=== PATIENT | female | born 1930 | race Caucasian/White ===

== ENCOUNTER 2017-07-05 16:45 | Inpatient (IN) ==
[2017-07-05 19:14] LABS: Bilirubin,Urine Negative (Negative); Blood,Urine Trace (Negative); Color,Urine Yellow (Yellow); Glucose,Urine (UA) Normal (Normal); Ketones,Urine Negative (Negative); Leukocyte Esterase,Urine Small (Negative); Nitrite,Urine Negative (Negative); Protein,Urine 30 mg/dL (Neg-Trace); Specific Gravity,Urine 1.025 (1.010-1.025); Urobilinogen,Urine Normal (Normal)
[2017-07-05 19:17] LABS: Basophils # 0.1 K/mcL (0.0-0.2); Basophils % 0.5 %; Eosinophils # 0.1 K/mcL (0.0-0.6); Eosinophils % 1.1 %; Hematocrit 40.1 % (35.3-44.9); Hemoglobin 13.1 g/dL (11.5-15.4); Immature Granulocytes % 0.6 % (0-4); Lymphocytes # 1.4 K/mcL (0.6-4.6); Lymphocytes % 14.6 %; Mean Corpuscular HGB Conc 32.7 g/dL (31.6-35.5); Mean Corpuscular Volume 88.9 fL (83.0-100.0); Mean Platelet Volume 10.3 fL (9.4-12.4); Monocytes # 0.5 K/mcL (0.0-1.3); Monocytes % 5.6 %; Neutrophils # 7.4 K/mcL (1.6-8.9); Platelet Count 296 K/mcL (140-400); Red Blood Count 4.51 M/mcL (3.82-4.97); Red Cell Distribution Width 13.2 % (11.5-14.5); Segmented Neutrophils % 77.6 %
[2017-07-05 19:24] LABS: Hyaline Casts,Urine None Seen per lpf (None-Few); RBC,Urine 0-3 per hpf (0-3); Squamous Epithelial Cell,Urine Many per lpf (None-Few); WBC,Urine 15-30 per hpf (0-3)
[2017-07-05 19:25] LABS: Clarity,Urine Hazy (Clear)
[2017-07-05 19:28] LABS: Alanine Aminotransferase 13 Units/L (7-52); Albumin 3.9 g/dL (3.5-5.7); Albumin/Globulin Ratio 1.1 (1.1-2.2); Alkaline Phosphatase 126 Units/L (34-104); Amylase 32 Units/L (29-103); Aspartate Amino Transferase 13 Units/L (13-39); BUN/Creatinine Ratio 38 (6-26); Bilirubin,Indirect 0.3 mg/dL (0.0-1.2); Bilirubin,Total 0.3 mg/dL (0.3-1.0); Blood Urea Nitrogen 33 mg/dL (8-23); Calcium 9.3 mg/dL (8.6-10.3); Carbon Dioxide 22 mEq/L (23-29); Chloride 103 mEq/L (98-107); Globulin 3.5 g/dL (2.4-3.5); Glucose 176 mg/dL (70-105); Lipase 34 Units/L (11-82); Osmolality,Calculated 288 (280-300); Potassium 4.4 mEq/L (3.5-5.1); Sodium 133 mEq/L (136-145); Total Protein 7.4 g/dL (6.4-8.9); eGFR For African Americans > 60 (> 60); eGFR For Non-African Americans > 60 (> 60)
[2017-07-05 19:37] LABS: Bacteria,Urine Moderate per hpf (None-Few)
--- NOTE | 2017-07-05 19:40 | Emergency Department Note ---
Disposition Clinical Impression: Acute exacerbation of chronic obstructive pulmonary disease (COPD), Pain with urination Disposition: Admitted As Inpatient Condition: Good Time of Disposition: 21:04 General Adult HPI - General Chief complaint: ED Abdominal Pain Stated complaint: UTI Time Seen by Provider: 07/05/17 17:40 Source: patient Limitations: no limitations Nursing Notes Reviewed: Yes Vital Signs Reviewed: Yes - History of Present Illness HPI Narrative: Patient is an 86-year-old female that just the emergency department for urinary symptoms. She states that she was diagnosed the urinary tract infection of approximately 10 days ago. States that she has been on 2 different antibiotics including Cipro and nitrofurantoin. Family states that she has had some changes in mentation including not being able sleep all night and infantile behavior. Denies any blood in her urine. States that she has been having some generalized weakness but denies any fever or chills. Pain Scale: 7 - Related Data Home Medications Medication Instructions Recorded Confirmed Acetaminophen w/Cod 300-30 mg 1 each PO Q8HR 06/26/17 06/26/17 [Tylenol w/Codeine #3] Albuterol Sulfate [Ventolin Hfa] 18 gm IH Q4HR 06/26/17 06/26/17 Cyclobenzaprine [Flexeril] 10 mg PO BID 06/26/17 06/26/17 Escitalopram [Lexapro] 10 mg PO DAILY 06/26/17 06/26/17 Fluticasone/Salmeterol [Advair 1 each IH BID 06/26/17 06/26/17 250-50 Diskus] Guaifenesin [Mucinex] 600 mg PO BID 06/26/17 06/26/17 Latanoprost [Xalatan] 1 drop OP HS 06/26/17 06/26/17 Lisinopril [Zestril] 20 mg PO DAILY 06/26/17 06/26/17 Meloxicam [Mobic] 15 mg PO DAILY 06/26/17 06/26/17 Metoprolol Tartrate [Lopressor] 25 mg PO BID 06/26/17 06/26/17 Pramipexole [Mirapex] 1 tab PO BID 06/26/17 06/26/17 Ranitidine HCl [Acid Corporate Investigator] 150 mg PO DAILY 06/26/17 06/26/17 Rosuvastatin Calcium [Crestor] 10 mg PO DAILY 06/26/17 06/26/17 Triamterene/HCTZ 37.5/25mg 1 each PO DAILY 06/26/17 06/26/17 [Dyazide] Previous Rx's Medication Instructions Recorded Ciprofloxacin [Cipro] 500 mg PO BID #14 tablet 06/26/17 Allergies Allergy/AdvReac Type Severity Reaction Status Date / Time Penicillins Allergy Rash Verified 06/26/17 18:17 All systems ED: reviewed and negative except as stated. Genitourinary: Reports: urgency, dysuria, frequency. Denies: hematuria Musculoskeletal: Reports: back pain (Chronic) Past Medical History - Past Medical History Medical history: Reports: arthritis, COPD, GERD, glaucoma, hyperlipidemia, hypertension Psychiatric history: Reports: depression HIGH WIRE ARTIST history: Reports: no HIGH WIRE ARTIST history - Social History Smoking Status: Current every day smoker Smokeless Tobacco Status: No Alcohol use: Reports: none Drug use: Reports: none Physical Exam - General Limitations: no limitations General appearance: alert, in no apparent distress - Head Head exam: atraumatic, normocephalic - Eye Eye exam: Present: normal appearance, EOMI - Neck Neck exam: Present: normal inspection, full ROM, trachea midline - Respiratory Respiratory exam: Present: other (Course breath sounds bilaterally). Absent: respiratory distress - Cardiovascular Cardiovascular exam: Present: regular rate, normal rhythm, normal heart sounds, +S1, +S2 - Abdominal Exam Abdominal exam: Present: soft, tenderness, normal bowel sounds Abdominal tenderness: Present: suprapubic, mild - Neurological Exam Neurological exam: Present: alert, oriented X3, CN II-XII intact - Expanded Neurological Exam Patient oriented to: Present: person, place, time Speech: Present: fluid speech Cranial nerves: EOM function (II, III, IV, ): Normal, facial sensation (V): Normal, facial palsy (VII): Normal, gag reflex (IX): Normal, spinal accessory function (XI): Normal, tongue deviation (XII): Normal Cerebellar function: finger to nose: Normal, heel to saleem: Normal Motor strength - LUE: 5/5 Motor strength - RUE: 5/5 Motor strength - LLE: 5/5 Motor strength - RLE: 5/5 Upper motor neuron exam: pronator drift: Absent bilaterally Sensory exam upper extremity: light touch: Normal Sensory exam lower extremity: light touch: Normal Coma Scale Eye Opening: Spontaneous Coma Scale Motor Response: Obeys Commands Coma Scale Verbal Response: Oriented Coma Scale Total: 15 - Psychiatric Psychiatric exam: Present: normal affect, normal mood - Skin Skin exam: Present: warm, dry, intact Course Vital Signs Temperature 98.9 F 07/05/17 17:31 Pulse Rate 82 07/05/17 17:31 Respiratory Rate 20 07/05/17 17:31 Blood Pressure 183/72 07/05/17 17:31 O2 Sat by Pulse Oximetry 95 07/05/17 17:31 Temperature 98.4 F 07/05/17 19:26 Pulse Rate 84 07/05/17 20:27 Respiratory Rate 16 07/05/17 20:27 Blood Pressure 114/99 07/05/17 20:27 O2 Sat by Pulse Oximetry 97 07/05/17 20:27 Oxygen Delivery Oxygen Delivery Nasal Cannula Medical Decision Making - MDM Narrative Medical decision making narrative: Due the patient presenting for abdominal pain and urinary symptoms we have ordered a CBC, BMP, urinalysis. Patient is also some crackles on exam as well as decreased oxygen saturations and we have given the patient a DuoNeb as well as obtained a chest x-ray which was negative for any acute process per radiology. Due to this patient having a drop in her O2 saturations while at rest the patient will need to be admitted to the hospital for further evaluation and management. His urine did have some leukocyte esterase and bacteria. The patient has been treated with Cipro and nitrofurantoin. The patient's CBC was unremarkable. Troponin was negative. I called and spoke to the hospitalist made except for the patient to their service. The patient will be admitted to the hospital at this time for further evaluation and management. - Medical Records Medical records reviewed: Yes I reviewed the patient's medical records. - Lab Data Lab results reviewed: Yes I reviewed the patient's lab results. Result diagrams: 07/05/17 19:00 07/05/17 19:00 Lab Results 07/05/17 07/05/17 07/05/17 Range/Units 19:00 19:00 19:00 WBC 9.6 (4.3-11.1) K/mcL RBC 4.51 (3.82-4.97) M/mcL Hgb 13.1 (11.5-15.4) g/dL Hct 40.1 (35.3-44.9) % MCV 88.9 (83.0-100.0) fL MCH 29.0 (28.0-33.3) pg MCHC 32.7 (31.6-35.5) g/dL RDW 13.2 (11.5-14.5) % Plt Count 296 (140-400) K/mcL MPV 10.3 (9.4-12.4) fL Immature Gran % 0.6 (0-4) % Seg Neutrophils % 77.6 % Lymphocytes % 14.6 % Monocytes % 5.6 % Eosinophils % 1.1 % Basophils % 0.5 % Neutrophils # 7.4 (1.6-8.9) K/mcL Lymphocytes # 1.4 (0.6-4.6) K/mcL Monocytes # 0.5 (0.0-1.3) K/mcL Eosinophils # 0.1 (0.0-0.6) K/mcL Basophils # 0.1 (0.0-0.2) K/mcL Sodium 133 L (136-145) mEq/L Potassium 4.4 (3.5-5.1) mEq/L Chloride 103 (98-107) mEq/L Carbon Dioxide 22 L (23-29) mEq/L BUN 33 H (8-23) mg/dL Creatinine 0.86 (0.60-1.20) mg/dL Est GFR ( Amer) > 60 (> 60) Est GFR (Non-Af Amer) > 60 (> 60) BUN/Creatinine Ratio 38 H (6-26) Glucose 176 H (70-105) mg/dL Calculated Osmolality 288 (280-300) Lactic Acid (0.5-2.2) mmol/L Calcium 9.3 (8.6-10.3) mg/dL Total Bilirubin 0.3 (0.3-1.0) mg/dL Direct Bilirubin 0.0 (0.0-0.2) mg/dL Indirect Bilirubin 0.3 (0.0-1.2) mg/dL AST 13 (13-39) Units/L ALT 13 (7-52) Units/L Alkaline Phosphatase 126 H (34-104) Units/L Troponin I (< 0.04) ng/mL Serum Total Protein 7.4 (6.4-8.9) g/dL Albumin 3.9 (3.5-5.7) g/dL Globulin 3.5 (2.4-3.5) g/dL Albumin/Globulin Ratio 1.1 (1.1-2.2) Amylase 32 (29-103) Units/L Lipase 34 (11-82) Units/L Urine Color Yellow (Yellow) Urine Clarity Hazy A (Clear) Urine pH 6.0 (5.0-8.0) pH Units Ur Specific [place] 1.025 (1.010-1.025) Urine Protein 30 H (Neg-Trace) mg/dL Urine Glucose (UA) Normal (Normal) mg/dL Urine Ketones Negative (Negative) mg/dL Urine Blood Trace H (Negative) Urine Nitrite Negative (Negative) Urine Bilirubin Negative (Negative) Urine Urobilinogen Normal (Normal) mg/dL Ur Leukocyte Esterase Small H (Negative) Urine Microscopic RBC 0-3 (0-3) per hpf Urine Microscopic WBC 15-30 H (0-3) per hpf Ur Squamous Epith Cells Many H (None-Few) per lpf Urine Bacteria Moderate H (None-Few) per hpf Hyaline Casts None Seen (None-Few) per lpf Ur Culture Indicated? NO. (NO) 07/05/17 07/05/17 Range/Units 19:55 19:55 WBC (4.3-11.1) K/mcL RBC (3.82-4.97) M/mcL Hgb (11.5-15.4) g/dL Hct (35.3-44.9) % MCV (83.0-100.0) fL MCH (28.0-33.3) pg MCHC (31.6-35.5) g/dL RDW (11.5-14.5) % Plt Count (140-400) K/mcL MPV (9.4-12.4) fL Immature Gran % (0-4) % Seg Neutrophils % % Lymphocytes % % Monocytes % % Eosinophils % % Basophils % % Neutrophils # (1.6-8.9) K/mcL Lymphocytes # (0.6-4.6) K/mcL Monocytes # (0.0-1.3) K/mcL Eosinophils # (0.0-0.6) K/mcL Basophils # (0.0-0.2) K/mcL Sodium (136-145) mEq/L Potassium (3.5-5.1) mEq/L Chloride (98-107) mEq/L Carbon Dioxide (23-29) mEq/L BUN (8-23) mg/dL Creatinine (0.60-1.20) mg/dL Est GFR ( Amer) (> 60) Est GFR (Non-Af Amer) (> 60) BUN/Creatinine Ratio (6-26) Glucose (70-105) mg/dL Calculated Osmolality (280-300) Lactic Acid 1.2 (0.5-2.2) mmol/L Calcium (8.6-10.3) mg/dL Total Bilirubin (0.3-1.0) mg/dL Direct Bilirubin (0.0-0.2) mg/dL Indirect Bilirubin (0.0-1.2) mg/dL AST (13-39) Units/L ALT (7-52) Units/L Alkaline Phosphatase (34-104) Units/L Troponin I < 0.03 (< 0.04) ng/mL Serum Total Protein (6.4-8.9) g/dL Albumin (3.5-5.7) g/dL Globulin (2.4-3.5) g/dL Albumin/Globulin Ratio (1.1-2.2) Amylase (29-103) Units/L Lipase (11-82) Units/L Urine Color (Yellow) Urine Clarity (Clear) Urine pH (5.0-8.0) pH Units Ur Specific [place] (1.010-1.025) Urine Protein (Neg-Trace) mg/dL Urine Glucose (UA) (Normal) mg/dL Urine Ketones (Negative) mg/dL Urine Blood (Negative) Urine Nitrite (Negative) Urine Bilirubin (Negative) Urine Urobilinogen (Normal) mg/dL Ur Leukocyte Esterase (Negative) Urine Microscopic RBC (0-3) per hpf Urine Microscopic WBC (0-3) per hpf Ur Squamous Epith Cells (None-Few) per lpf Urine Bacteria (None-Few) per hpf Hyaline Casts (None-Few) per lpf Ur Culture Indicated? (NO) - Radiology Data Radiology results reviewed: Yes I reviewed the patient's radiology results. Chest X-Ray 07/05/17 19:42 IMPRESSION: 1. No acute cardiopulmonary process identified. D/ / Saw Multani MD / Saw Multani MD Interpreting Provider: Saw Multani MD - EKG Data EKG #1 EKG attestation: Yes I reviewed and interpreted this EKG. EKG results narrative: EKG showed a sinus rhythm at 76 bpm, IA interval of 149, QRS 77, QTC of 389 with a normal axis. There is no STEMI noted on this EKG.
[2017-07-05] MEDS ORDERED: Ipratropium/Albuterol Neb 3 ML IH ONE (20:21)
--- NOTE | 2017-07-05 20:35 | Emergency Department Note ---
START Narrative - START START: I examined this patient and my medical decision-making was reviewed with the Resident Physician. I agree with the documented findings, disposition and treatment plan as described except to the extent set forth below. 86 year old female presnets to the ED with complaints of UTI sypmtos and has a History of COPD and family at bedside states that she seems more alterd than usual. Martha was most recently on ABX therapy for her UTI and it appers that it has resolved. Martha does have coarse breath sounds and upon minimal exertion i.e. sitting up in bed she started to exhibit exetionald dyspnea with a pulse of of 87% on RA, we have placed her on 2LNC, and will complete cardiopulmonary workup and admit her to medicine for COPD excebration r/o pneumoina and treat her with breathing tretments and steroids.
[2017-07-05] MEDS ORDERED: Naloxone 0.4 MG/ML INJ IVP PRN (21:32)
[2017-07-05] MEDS ORDERED: Ipratropium/Albuterol Neb 3 ML IH PRN (21:34)
--- NOTE | 2017-07-05 21:41 | Internal Med History&Physical ---
Date of Encounter: 07/05/17 Time of Encounter: 21:24 Assessment and Plan (1) Lower urinary tract symptoms Current visit: Yes Status: Acute failed antibiotics for empiric UTI therapy. I am not sure if her symptoms are truly related to UTI. Will hold antibiotics and await urine cx. UA sent in the ED appears contaminated consult urology to explore urinary retention as the cause of her symptoms Will monitor whether the srivastava cath alleviate her suprapubic symptoms (2) Acute exacerbation of chronic obstructive pulmonary disease (COPD) Current visit: Yes Status: Acute duonebs, IV steroids, IV antibiotics, send RVP (3) Hyponatremia Current visit: Yes Status: Acute IVF and trend Na Internal Medicine - H&P: HPI Chief complaint: Suprapubic discomfort History of present illness: Ms. Smiley is a 86 year old female who presents with subacute onset of suprapubic discomfort. She was seen twice at a local ED for 4 weeks hx of suprapubic discomfort. 2 weeks ago, she was first treated with 1 week course of cipro which did not improve symptoms. She subsequently went back and was given a course of nitrofurantoin for which she completed 3 days of with no improvement. In the ED , a srivastava was placed with approx 500 cc of UOP obtain suggesting urinary retention and thus failure of antibiotics. She has a hx of bladder suspension here at [place] many years ago. On review, she notes that her hip hurts and that she has generalize shakiness. She is previously independent but due to her symptoms, her dtrs have been taking turns living with her in the last 2 weeks In the ED, she was found to be hypoxic on RA and had to be placed on supplemental oxygen. Further assessment found her to be in COPD exacerbation. She smokes 2 PPD at baseline but uses no oxygen routinely. EKG personally reviewed with rate 76, NSR 76 XR/XR chest 1V portable IMPRESSION: 1. No acute cardiopulmonary process identified. Past Med Surg Social Fam HX - Past Medical History Medical history: arthritis, COPD, GERD, glaucoma, hyperlipidemia, hypertension Psychiatric history: depression - Social History Smoking Status: Current every day smoker Smokeless Tobacco Status: No Alcohol use: none Drug use: none Internal Medicine - H&P: Meds Acetaminophen w/Cod 300-30 mg [Tylenol w/Codeine #3] 1 each PO Q8HR 06/26/17 [ History] Albuterol Sulfate [Ventolin Hfa] 2 puff IH Q4HR PRN 06/26/17 [History] Cyclobenzaprine [Flexeril] 10 mg PO BID 06/26/17 [History] Escitalopram [Lexapro] 10 mg PO DAILY 06/26/17 [History] Fluticasone/Salmeterol [Advair 250-50 Diskus] 1 each IH BID 06/26/17 [History] Guaifenesin [Mucinex] 600 mg PO BID 06/26/17 [History] Latanoprost [Xalatan] 1 drop OP HS 06/26/17 [History] Lisinopril [Zestril] 20 mg PO DAILY 06/26/17 [History] Meloxicam [Mobic] 15 mg PO DAILY 06/26/17 [History] Pramipexole [Mirapex] 1 mg PO BID 06/26/17 [History] Ranitidine HCl [Acid Auto Appraiser] 150 mg PO DAILY 06/26/17 [History] Rosuvastatin Calcium [Crestor] 10 mg PO HS 06/26/17 [History] Triamterene/HCTZ 37.5/25mg [Dyazide] 1 each PO DAILY 06/26/17 [History] Brimonidine Tartrate [Brimonidine Tartrate] 1 drop OP BID 07/05/17 [History] LORazepam [Ativan] 0.5 mg PO TID 07/05/17 [History] Metoprolol [Lopressor] 25 mg PO BID 07/05/17 [History] Nitrofurantoin (BID) [Macrobid] 100 mg PO BID 07/05/17 [History] 3 Allergy/AdvReac Type Severity Reaction Status Date / Time Penicillins Allergy Rash Verified 06/26/17 18:17 All Systems PM: A 10-system review of systems was performed and is negative for pertinent findings except as documented above in the HPI. - Constitutional Vitals: Temp Pulse Resp BP Pulse Ox 98.4 F 103 16 131/87 95 07/05/17 19:26 07/05/17 21:13 07/05/17 21:13 07/05/17 21:13 07/05/17 21:13 Internal Med - H&P Results - Labs CBC & Chem 7: 07/05/17 19:00 07/05/17 19:00
[2017-07-05] MEDS: 0.9 % Sodium Chloride 1,000 ML IVC SCH (23:00)
[2017-07-05] MEDS: Azithromycin 500 MG in D5% in Water 250 ML IVPB SCH (23:01)
[2017-07-06] MEDS: *HR* Acetaminophen w/Cod 300-30 mg 1 TAB TABLET PO SCH ×4 (00:08→23:45)
[2017-07-06] MEDS ORDERED: Ibuprofen 600 MG TABLET PO ONE (04:08)
[2017-07-06 04:15] LABS: Basophils # 0.1 K/mcL (0.0-0.2); Basophils % 0.4 %; Eosinophils # 0.1 K/mcL (0.0-0.6); Eosinophils % 0.4 %; Hematocrit 38.9 % (35.3-44.9); Hemoglobin 12.9 g/dL (11.5-15.4); Immature Granulocytes % 0.4 % (0-4); Lymphocytes # 1.6 K/mcL (0.6-4.6); Lymphocytes % 14.2 %; Mean Corpuscular HGB Conc 33.2 g/dL (31.6-35.5); Mean Corpuscular Hemoglobin 29.5 pg (28.0-33.3); Mean Platelet Volume 10.5 fL (9.4-12.4); Monocytes # 0.7 K/mcL (0.0-1.3); Neutrophils # 8.9 K/mcL (1.6-8.9); Platelet Count 284 K/mcL (140-400); Red Blood Count 4.37 M/mcL (3.82-4.97); Red Cell Distribution Width 13.2 % (11.5-14.5); Segmented Neutrophils % 78.6 %
[2017-07-06] MEDS: Ipratropium/Albuterol Neb 3 ML IH SCH ×4 (04:29→22:42)
[2017-07-06 04:31] LABS: BUN/Creatinine Ratio 33 (6-26); Blood Urea Nitrogen 24 mg/dL (8-23); Calcium 9.4 mg/dL (8.6-10.3); Carbon Dioxide 25 mEq/L (23-29); Chloride 103 mEq/L (98-107); Glucose 174 mg/dL (70-105); Osmolality,Calculated 288 (280-300); Potassium 3.6 mEq/L (3.5-5.1); Sodium 135 mEq/L (136-145); eGFR For African Americans > 60 (> 60); eGFR For Non-African Americans > 60 (> 60)
[2017-07-06] MEDS: *HR* Enoxaparin 30 MG/0.3 ML SYRINGE SQ SCH (06:27)
[2017-07-06] MEDS: 0.9 % Sodium Chloride 1,000 ML IVC SCH (08:30)
[2017-07-06] MEDS: Nicotine 21 MG PATCH.TD24 TD SCH (08:31)
[2017-07-06] MEDS: *HR* LORazepam 0.5 MG TABLET PO SCH ×3 (08:32→20:35)
[2017-07-06] MEDS: Lisinopril 20 MG TABLET PO SCH (08:32)
[2017-07-06] MEDS ORDERED: MethylPREDNISolone 40 MG/ML VIAL IVP SCH (09:00)
[2017-07-06] MEDS: Budesonide/Formoterol 80/4.5 MDI IH SCH ×2 (10:16→22:42)
--- NOTE | 2017-07-06 10:35 | Internal Med Progress Note ---
Date of Encounter: 07/06/17 Time of Encounter: 08:00 - Assessment and plan (1) Urinary retention with incomplete bladder emptying Current Visit: Yes Status: Acute Assessment and plan: hx remote bladder suspension. Now with reported suprapubic discomfort for 4 weeks. Completed a course of Cipro and Macrobid did not improve dysuria, suprapubic discomfort. Mtz catheter placed in the ED with proximally 500 and Puja's UO P concerning for urinary retention. Initial UA not indicative of UTI. Remove Mtz catheter, monitor urinary output. Repeat UA. Hold on ATB at this time (2) Acute exacerbation of chronic obstructive pulmonary disease (COPD) Current Visit: Yes Status: Acute Assessment and plan: CXR non-acute. Has known history of COPD and chronic, productive cough. No increase or change in sputum production. Afebrile, no elevated WBC. Stop IV steroids. Continue breathing treatments, azithromycin. (3) Generalized weakness Current Visit: Yes Status: Acute Assessment and plan: with worsening bilateral hip and low back pain and difficulty ambulating. 2017 bilateral hip/pelvis x-ray with degenerative changes to lumbar/bilateral hip/pelvis. Lives alone but daughters have been taking turns staying with patient over the last 2 weeks due to decreased mobility. She may benefit from SNF. PT/OT consult (4) Essential hypertension Current Visit: Yes Status: Acute Assessment and plan: per hx. BP variable; initially BP elevated but now low/soft. Cont home BB with hold parameters. Monitor BP and titrate PRN (5) DVT prophylaxis Current Visit: Yes Status: Acute Assessment and plan: lovenox - Subjective Interval history: Seen and examined at bedside, patient is new to me. Information obtained from chart review and patient report. Patients says she feels better than when she came in. She complains of bilateral hip and lower back pain is contributing to difficulty ambulating. No numbness or tingling. No loss of bowel or bladder incontinence. Has known osteoarthritis. No dysuria. No family at bedside for collateral - Constitutional Vitals: Temp Pulse Resp BP Pulse Ox 98.4 F 99 16 95/66 94 07/06/17 06:49 07/06/17 06:49 07/06/17 06:49 07/06/17 06:49 07/06/17 06:49 General appearance: Present: A&O X 3, pleasant, no acute distress - Head Head exam: Present: atraumatic, normocephalic - Eye Eye exam: Present: PERRL, conjuntiva pink, sclera anicteric Pupils: Present: PERRL - Neck Neck exam general surgery: Present: supple, trachea midline. Absent: lymphadenopathy - Respiratory Respiratory exam: Present: CTAB. Absent: accessory muscle use, rales, rhonchi, wheezes - Cardiovascular Cardiovascular exam: Present: RRR, +S1, +S2. Absent: diastolic murmur, gallop, rubs, systolic murmur - GI/Abdominal GI/Abdominal exam: Present: normal bowel sounds, soft, no peritoneal signs. Absent: distended, tenderness - Extremities Exam Extremities exam: Present: warm, radial pulses palpable and symmetrical. Absent : calf tenderness, cyanotic, pedal edema - Neurological Exam Neurological exam: Present: CN II-XII intact, oriented X3, no focal deficits. Absent: pronater drift, facial droop, speech deficit - Skin Skin exam: Present: dry, intact Internal Medicine: Result - Labs CBC & Chem 7: 07/06/17 03:06 07/06/17 03:06 Labs: Short CBC 07/06/17 Range/Units 03:06 WBC 11.3 H (4.3-11.1) K/mcL Hgb 12.9 (11.5-15.4) g/dL Hct 38.9 (35.3-44.9) % Plt Count 284 (140-400) K/mcL Neutrophils # 8.9 (1.6-8.9) K/mcL BMP 07/06/17 03:06 Sodium 135 L Potassium 3.6 Chloride 103 Carbon Dioxide 25 BUN 24 H Creatinine 0.72 Glucose 174 H Calcium 9.4 Consult Discharge Plan - Plan Referrals: Amee Campbell, CLIENT RENEWAL SPECIALIST [Primary Care Provider] -
[2017-07-06 10:41] LABS: Bilirubin,Urine Negative (Negative); Blood,Urine Moderate (Negative); Clarity,Urine Clear (Clear); Color,Urine Yellow (Yellow); Glucose,Urine (UA) 100 mg/dL (Normal); Ketones,Urine Negative (Negative); Leukocyte Esterase,Urine Moderate (Negative); Nitrite,Urine Negative (Negative); PH,Urine 6.5 pH Units (5.0-8.0); Protein,Urine 30 mg/dL (Neg-Trace); Specific Gravity,Urine 1.021 (1.010-1.025); Urobilinogen,Urine Normal (Normal)
[2017-07-06 10:44] LABS: Bacteria,Urine None Seen per hpf (None-Few); Hyaline Casts,Urine None Seen per lpf (None-Few); RBC,Urine 30-50 per hpf (0-3); Squamous Epithelial Cell,Urine Many per lpf (None-Few); WBC,Urine 50-100 per hpf (0-3)
--- NOTE | 2017-07-06 15:24 | Electrocardiograph Report ---
[place] [id number] Test Date: 2017-07-05 Pat Name: Neema Smiley Department: 102 Room: 3B14 Gender: F Director Of Quantitative Research: : 1930 Requested By: Randell Clemente Order Number: [id number] Reading MD: Jovanna Muniz Measurements Intervals Oden Rate: 76 P: 63 IN: 149 QRS: 12 QRSD: 77 T: 35 QT: 358 QTc: 389 Interpretive Statements SINUS RHYTHM MINIMAL ST DEPRESSION [0.025+ mV ST DEPRESSION] Electronically Signed On 07-06-2017 15:23:26 EST by Jovanna Muniz
[2017-07-06] MEDS ORDERED: MOM Conc 10 ML UD.LIQ PO PRN (16:43)
--- NOTE | 2017-07-06 18:15 | Urology - Consult Note ---
Date of Encounter: 07/06/17 Time of Encounter: 18:13 - Assessment and Plan (1) Urinary retention with incomplete bladder emptying Current Visit: Yes Status: Acute Assessment and plan: I suspect that the incomplete emptying is multifactorial including increasing weakness/debilitation, worsening constipation, potential outlet obstruction from previous bladder suspension procedure. I recommend keeping the catheter in place through the weekend with attempts at voiding trial at the urology office next week. Patient could be discharged with the catheter in place. Need to provide a better control of her constipation prior to the voiding trial. We' ll start milk of magnesia as this has helped the patient in the past. If ineffective may require more aggressive management. Discussed with the patient and her daughter her living situation. It appears they are having difficulty at home as she is having significant increased weakness and difficulty caring for herself. visitor services specialist has been consult it. May need to consider live-in aide or alf placement Urology CN:JOSEPHINE Consult date: 07/06/17 Reason for consult Urology: Other History of present illness: 86-year-old female increasing weakness at home. Increasing lower abdominal pain. He presents to the hospital. Catheter placed with return of 500 mL of residual urine. Decrease in pelvic discomfort. Patient reports significant issues with constipation currently and in the past. No history of urinary retention. No gross hematuria. History of a bladder suspension procedure a number of years ago. Past Med Surg Social Fam HX - Past Medical History Medical history: arthritis, COPD, GERD, glaucoma, hyperlipidemia, hypertension, osteoporosis Psychiatric history: anxiety, depression - Past Surgical History Surgical History: hysterectomy - Social History Smoking Status: Current every day smoker Packs per day: 2 Smokeless Tobacco Status: No Alcohol use: none Drug use: none - Family History Father Living Status: Cause of : accident Medications and Allergies Acetaminophen w/Cod 300-30 mg [Tylenol w/Codeine #3] 1 each PO Q8HR 06/26/17 [ History] Albuterol Sulfate [Ventolin Hfa] 2 puff IH Q4HR PRN 06/26/17 [History] Cyclobenzaprine [Flexeril] 10 mg PO BID 06/26/17 [History] Escitalopram [Lexapro] 10 mg PO DAILY 06/26/17 [History] Fluticasone/Salmeterol [Advair 250-50 Diskus] 1 each IH BID 06/26/17 [History] Guaifenesin [Mucinex] 600 mg PO BID 06/26/17 [History] Latanoprost [Xalatan] 1 drop OP HS 06/26/17 [History] Lisinopril [Zestril] 20 mg PO DAILY 06/26/17 [History] Meloxicam [Mobic] 15 mg PO DAILY 06/26/17 [History] Pramipexole [Mirapex] 1 mg PO BID 06/26/17 [History] Ranitidine HCl [Acid Service Line Bus Cleaner] 150 mg PO DAILY 06/26/17 [History] Rosuvastatin Calcium [Crestor] 10 mg PO HS 06/26/17 [History] Triamterene/HCTZ 37.5/25mg [Dyazide] 1 each PO DAILY 06/26/17 [History] Brimonidine Tartrate [Brimonidine Tartrate] 1 drop OP BID 07/05/17 [History] LORazepam [Ativan] 0.5 mg PO TID 07/05/17 [History] Metoprolol [Lopressor] 25 mg PO BID 07/05/17 [History] Nitrofurantoin (BID) [Macrobid] 100 mg PO BID 07/05/17 [History] 3 Allergy/AdvReac Type Severity Reaction Status Date / Time Penicillins Allergy Rash Verified 06/26/17 18:17 Review of Systems - Constitutional fatigue, weakness, no fever(s) - EENT Nose, mouth and throat: dizziness - Cardiovascular no chest pain - Respiratory no cough - Gastrointestinal abdominal pain, nausea - Genitourinary Genitourinary: difficulty voiding, pelvic pain - Musculoskeletal back pain - Integumentary no lesions - Neurological no confusion - Psychiatric no anxiety - Hematologic/Lymphatic no easy bleeding - Allergic/Immunologic no throat swelling Exam Initial Vital Signs Temp Pulse Resp BP Pulse Ox 98.9 F 82 20 183/72 95 07/05/17 17:31 07/05/17 17:31 07/05/17 17:31 07/05/17 17:31 07/05/17 17:31 - General physical appearance Present: no pain, chronically ill - Eyes Present: PERRL, conjunctiva is clear - ENT Present: normal nares, no hearing loss - Neck Present: no masses, no lymphadenopathy - Respiratory Present: normal respiratory effort - Cardiovascular Cardiovascular exam IM: RRR - Abdomen Abdomen: Present: soft. Absent: masses, suprapubic tenderness - Neurologic Present: confused. Absent: disoriented - Additional Findings Mtz with clear urine Urology Results - Labs 07/06/17 03:06 07/06/17 03:06 Abnormal lab results WBC 11.3 K/mcL (4.3-11.1) H 07/06/17 03:06 Sodium 135 mEq/L (136-145) L 07/06/17 03:06 BUN 24 mg/dL (8-23) H 07/06/17 03:06 BUN/Creatinine Ratio 33 (6-26) H 07/06/17 03:06 Glucose 174 mg/dL (70-105) H 07/06/17 03:06 Alkaline Phosphatase 126 Units/L (34-104) H 07/05/17 19:00 Urine Protein 30 mg/dL (Neg-Trace) H 07/06/17 10:30 Urine Glucose (UA) 100 mg/dL (Normal) H 07/06/17 10:30 Urine Blood Moderate (Negative) H 07/06/17 10:30 Ur Leukocyte Esterase Moderate (Negative) H 07/06/17 10:30 Urine Microscopic RBC 30-50 per hpf (0-3) H 07/06/17 10:30 Urine Microscopic WBC 50-100 per hpf (0-3) H 07/06/17 10:30 Ur Squamous Epith Cells Many per lpf (None-Few) H 07/06/17 10:30 Diabetes panel 07/06/17 Range/Units 03:06 Sodium 135 L (136-145) mEq/L Potassium 3.6 (3.5-5.1) mEq/L Chloride 103 (98-107) mEq/L Carbon Dioxide 25 (23-29) mEq/L BUN 24 H (8-23) mg/dL Creatinine 0.72 (0.60-1.20) mg/dL Glucose 174 H (70-105) mg/dL Calcium 9.4 (8.6-10.3) mg/dL Calcium panel 07/06/17 Range/Units 03:06 Calcium 9.4 (8.6-10.3) mg/dL Pituitary panel 07/06/17 Range/Units 03:06 Sodium 135 L (136-145) mEq/L Potassium 3.6 (3.5-5.1) mEq/L Chloride 103 (98-107) mEq/L Carbon Dioxide 25 (23-29) mEq/L BUN 24 H (8-23) mg/dL Creatinine 0.72 (0.60-1.20) mg/dL Glucose 174 H (70-105) mg/dL Calcium 9.4 (8.6-10.3) mg/dL Adrenal panel 07/06/17 Range/Units 03:06 Sodium 135 L (136-145) mEq/L Potassium 3.6 (3.5-5.1) mEq/L Chloride 103 (98-107) mEq/L Carbon Dioxide 25 (23-29) mEq/L BUN 24 H (8-23) mg/dL Creatinine 0.72 (0.60-1.20) mg/dL Glucose 174 H (70-105) mg/dL Calcium 9.4 (8.6-10.3) mg/dL All other labs normal. Consult Discharge Plan - Plan Referrals: Amee Campbell, FLAME C[employer]TER [Primary Care Provider] -
[2017-07-06] MEDS: MOM Conc 10 ML UD.LIQ PO SCH (20:36)
[2017-07-06] MEDS: Latanoprost 2.5 ML BOTTLE BOTH EYES SCH (20:36)
[2017-07-06] MEDS: Azithromycin 500 MG in D5% in Water 250 ML IVPB SCH (22:59)
[2017-07-06] MEDS: rOPINIRole 1 MG TABLET PO SCH (22:59)
[2017-07-07] MEDS: Ipratropium/Albuterol Neb 3 ML IH SCH ×4 (04:24→22:08)
[2017-07-07] MEDS: *HR* Enoxaparin 30 MG/0.3 ML SYRINGE SQ SCH (05:13)
[2017-07-07] MEDS: rOPINIRole 1 MG TABLET PO SCH ×2 (07:32→21:18)
[2017-07-07] MEDS: MOM Conc 10 ML UD.LIQ PO SCH (07:32)
[2017-07-07] MEDS: Nicotine 21 MG PATCH.TD24 TD SCH (07:32)
[2017-07-07] MEDS: *HR* LORazepam 0.5 MG TABLET PO SCH ×3 (07:35→21:18)
[2017-07-07] MEDS: Lisinopril 20 MG TABLET PO SCH (07:35)
[2017-07-07] MEDS: *HR* Acetaminophen w/Cod 300-30 mg 1 TAB TABLET PO SCH ×2 (07:35→14:29)
[2017-07-07] MEDS: *HR* Morphine 2 MG/ML SYRINGE IVP PRN (11:04)
[2017-07-07] MEDS: Budesonide/Formoterol 80/4.5 MDI IH SCH ×2 (11:09→22:08)
[2017-07-07] MEDS ORDERED: *HR* HYDROmorphone (PF) 1 MG/ML SYRINGE IVP ONE (13:21)
[2017-07-07] MEDS ORDERED: *HR* Promethazine 25 MG/ML VIAL IVP ONE (13:22)
--- NOTE | 2017-07-07 14:16 | Internal Med Progress Note ---
Date of Encounter: 07/07/17 Time of Encounter: 14:13 - Assessment and plan (1) Urinary retention with incomplete bladder emptying Current Visit: Yes Status: Acute Assessment and plan: hx remote bladder suspension. Now with suprapubic discomfort for 4 weeks. Completed a course of Cipro and Macrobid outpatient with no improvement in dysuria, suprapubic discomfort. Mtz catheter placed in the ED with approx 500 mLs UOP obtained, concerning for urinary retention. Initial UA not indicative of UTI. Evaluated by Urology who suspects multifactorial secondary to constipation and potential obstruction from previous bladder suspension. Keep Mtz catheter in place, and will need to follow-up with urology outpatient for voiding trial. (2) Sacral insufficiency fracture Current Visit: Yes Status: Acute Assessment and plan: presented with lower back pain, worse over the last week. Lumbar MRI with acute S2/S3 sacral insufficiency fracture. Discussed with Dr. Mckeon on and no acute intervention required at this time. Will need to follow-up with Dr. Mckeon's office in one month. Qualifiers: Encounter type: initial encounter Qualified Code(s): M84.48XA - Pathological fracture, other site, initial encounter for fracture (3) Acute exacerbation of chronic obstructive pulmonary disease (COPD) Current Visit: Yes Status: Acute Assessment and plan: CXR non-acute. Has known history of COPD and chronic, productive cough. No increase or change in sputum production. Afebrile, no elevated WBC. Stop IV steroids. Continue breathing treatments, azithromycin. (4) Generalized weakness Current Visit: Yes Status: Acute Assessment and plan: with worsening bilateral hip and low back pain and difficulty ambulating. 2017 bilateral hip/pelvis x-ray with degenerative changes to lumbar/bilateral hip/pelvis. Lives alone but daughters have been taking turns staying with patient over the last 2 weeks due to decreased mobility. PT/OT recommending acute inpatient rehabilitation. (5) Essential hypertension Current Visit: Yes Status: Acute Assessment and plan: per hx. BP variable; initially BP elevated but now low/soft. Cont home BB with hold parameters. Monitor BP and titrate PRN (6) DVT prophylaxis Current Visit: Yes Status: Acute Assessment and plan: lovenox - Subjective Interval history: Seen and examined at bedside; says she had an uneventful night. Still with complaint of lower back pain and bilateral hip pain. Patient states pain is getting her from being mobile and sitting up. No saddle anesthesia, no radiculopathy. No bowel or bladder incontinence. She is reluctant to go to inpatient rehabilitation however she is agreeable. - Constitutional Vitals: Temp Pulse Resp BP Pulse Ox 98.9 F 87 16 150/64 95 07/07/17 11:02 07/07/17 11:02 07/07/17 11:12 07/07/17 11:02 07/07/17 11:12 General appearance: Present: A&O X 3, pleasant, no acute distress - Head Head exam: Present: atraumatic, normocephalic - Eye Eye exam: Present: PERRL, conjuntiva pink, sclera anicteric Pupils: Present: PERRL - Neck Neck exam general surgery: Present: supple, trachea midline. Absent: lymphadenopathy - Respiratory Respiratory exam: Present: CTAB. Absent: accessory muscle use, rales, rhonchi, wheezes - Cardiovascular Cardiovascular exam: Present: RRR, +S1, +S2. Absent: diastolic murmur, gallop, rubs, systolic murmur - GI/Abdominal GI/Abdominal exam: Present: normal bowel sounds, soft, no peritoneal signs. Absent: distended, tenderness - Extremities Exam Extremities exam: Present: warm, radial pulses palpable and symmetrical. Absent : calf tenderness, cyanotic, pedal edema - Neurological Exam Neurological exam: Present: CN II-XII intact, oriented X3, no focal deficits. Absent: pronater drift, facial droop, speech deficit - Skin Skin exam: Present: dry, intact Internal Medicine: Result - Labs CBC & Chem 7: 07/06/17 03:06 07/06/17 03:06 - Impressions Impressions Lumbar Spine MRI 07/07/17 08:56 IMPRESSION: Abnormal bone marrow signal in the S2 and S3 vertebral bodies, extending to the bilateral sacral ala, consistent with acute sacral insufficiency fractures. Multilevel degenerative disc disease as described above. Spinal canal narrowing, mild at L4-5. Foraminal narrowing, mild at bilateral L4-5 and bilateral L5-S1. D/ / Omer Mukherjee MD / Omer Mukherjee MD Interpreting Provider: Omer Mukherjee MD Consult Discharge Plan - Plan Referrals: Amee Campbell, CARI [Primary Care Provider] -
[2017-07-07] MEDS ORDERED: 0.9 % Sodium Chloride 500 ML IVC ONE ×2 (19:21→20:07)
[2017-07-07] MEDS: Latanoprost 2.5 ML BOTTLE BOTH EYES SCH (21:18)
[2017-07-07] MEDS: Azithromycin 500 MG in D5% in Water 250 ML IVPB SCH (21:19)
[2017-07-07 21:45] LABS: Bilirubin,Urine Negative (Negative); Blood,Urine Large (Negative); Clarity,Urine Clear (Clear); Color,Urine Yellow (Yellow); Glucose,Urine (UA) Normal (Normal); Ketones,Urine Negative (Negative); Leukocyte Esterase,Urine Negative (Negative); Nitrite,Urine Negative (Negative); Protein,Urine Negative (Neg-Trace); Specific Gravity,Urine 1.017 (1.010-1.025); Urobilinogen,Urine Normal (Normal)
[2017-07-07 21:47] LABS: Bacteria,Urine None Seen per hpf (None-Few); Hyaline Casts,Urine None Seen per lpf (None-Few); RBC,Urine 50-100 per hpf (0-3); Squamous Epithelial Cell,Urine None Seen per lpf (None-Few); WBC,Urine 0-3 per hpf (0-3)
[2017-07-08] MEDS: *HR* Acetaminophen w/Cod 300-30 mg 1 TAB TABLET PO SCH ×3 (00:32→15:48)
[2017-07-08] MEDS: Ipratropium/Albuterol Neb 3 ML IH SCH ×3 (04:11→16:13)
[2017-07-08] MEDS: *HR* Morphine 2 MG/ML SYRINGE IVP PRN (05:14)
[2017-07-08] MEDS: *HR* Enoxaparin 30 MG/0.3 ML SYRINGE SQ SCH (05:15)
[2017-07-08] MEDS ORDERED: Nicotine 21 MG PATCH.TD24 TD ONE (05:26)
[2017-07-08] MEDS: *HR* LORazepam 0.5 MG TABLET PO SCH ×2 (08:36→15:48)
[2017-07-08] MEDS: Nicotine 21 MG PATCH.TD24 TD SCH (08:36)
[2017-07-08] MEDS: rOPINIRole 1 MG TABLET PO SCH (08:36)
[2017-07-08] MEDS: MOM Conc 10 ML UD.LIQ PO SCH (08:41)
[2017-07-08] MEDS ORDERED: Lisinopril 20 MG TABLET PO SCH (09:00)
[2017-07-08 09:59] LABS: Hematocrit 34.9 % (35.3-44.9); Mean Corpuscular HGB Conc 32.4 g/dL (31.6-35.5); Mean Corpuscular Hemoglobin 29.4 pg (28.0-33.3); Mean Corpuscular Volume 90.6 fL (83.0-100.0); Mean Platelet Volume 10.3 fL (9.4-12.4); Platelet Count 228 K/mcL (140-400); Red Blood Count 3.85 M/mcL (3.82-4.97); Red Cell Distribution Width 13.6 % (11.5-14.5)
[2017-07-08 10:02] LABS: Hemoglobin 11.3 g/dL (11.5-15.4)
[2017-07-08] MEDS: Budesonide/Formoterol 80/4.5 MDI IH SCH (10:13)
[2017-07-08 10:18] LABS: BUN/Creatinine Ratio 28 (6-26); Blood Urea Nitrogen 23 mg/dL (8-23); Calcium 8.8 mg/dL (8.6-10.3); Carbon Dioxide 27 mEq/L (23-29); Chloride 102 mEq/L (98-107); Glucose 208 mg/dL (70-105); Osmolality,Calculated 290 (280-300); Potassium 3.9 mEq/L (3.5-5.1); Sodium 135 mEq/L (136-145); eGFR For African Americans > 60 (> 60); eGFR For Non-African Americans > 60 (> 60)
[2017-07-08] MEDS ORDERED: 0.9 % Sodium Chloride 1,000 ML IVC ONE (11:36)
[2017-07-08 11:48] VITALS: BP 108/62
--- NOTE | 2017-07-08 12:48 | Discharge Summary ---
Date of Encounter: 07/08/17 Time of Encounter: 10:30 - Discharge Diagnosis (1) Urinary retention with incomplete bladder emptying Priority: Primary Status: Acute Comments: hx remote bladder suspension. Now with suprapubic discomfort for 4 weeks. Completed a course of Cipro and Macrobid outpatient with no improvement in dysuria, suprapubic discomfort. Srivastava catheter placed in the ED with approx 500 mLs UOP obtained, concerning for urinary retention. Initial UA not indicative of UTI. Evaluated by Urology who suspects urinary retention multifactorial secondary to constipation and potential obstruction from previous bladder suspension. Plan: keep Srivastava catheter in place until seen by Urology outpatient for voiding trial. (2) Sacral insufficiency fracture Priority: Primary Status: Acute Comments: with worsening bilateral hip, low back pain and difficulty ambulating. 06/26/2017 bilateral hip/pelvis x-ray with degenerative changes to lumbar/bilateral hip/ pelvis. Lumbar MRI with acute S2/S3 sacral insufficiency fracture. Discussed with Dr. Mckeon on 07/07/17 and no acute surgical intervention required at this time. Cont pain control, PT/OT, walker with ambulation. Will need to follow-up with Dr. Mckeon's office in one month (follow-up arranged) Qualifiers: Encounter type: initial encounter Qualified Code(s): M84.48XA - Pathological fracture, other site, initial encounter for fracture (3) Acute exacerbation of chronic obstructive pulmonary disease (COPD) Priority: Secondary Status: Chronic Comments: CXR non-acute. Has known history of COPD and chronic, productive cough. Received 3 doses IV azithromycin. No increase or change in sputum production. Afebrile, no elevated WBC. No indication to cont ATB at discharge. Cont inhalers. (4) Essential hypertension Priority: Primary Status: Acute Comments: per hx. BP has been labile with SBP in 80s requiring boluses to SBPs in 180s. Stop home triamterene/HCTX. Cont home MIRNA, BB at lower dose with hold parameters. BP can be monitored and medications adjusted per inpatient rehabilitation provider. - Discharge Medications Home Medications: Acetaminophen w/Cod 300-30 mg [Tylenol w/Codeine #3] 1 each PO Q8HR 06/26/17 [ History] Albuterol Sulfate [Ventolin Hfa] 2 puff IH Q4HR PRN 06/26/17 [History] Cyclobenzaprine [Flexeril] 10 mg PO BID 06/26/17 [History] Escitalopram [Lexapro] 10 mg PO DAILY 06/26/17 [History] Fluticasone/Salmeterol [Advair 250-50 Diskus] 1 each IH BID 06/26/17 [History] Guaifenesin [Mucinex] 600 mg PO BID 06/26/17 [History] Latanoprost [Xalatan] 1 drop OP HS 06/26/17 [History] Meloxicam [Mobic] 15 mg PO DAILY 06/26/17 [History] Pramipexole [Mirapex] 1 mg PO BID 06/26/17 [History] Ranitidine HCl [Acid Natural Resource Economist] 150 mg PO DAILY 06/26/17 [History] Rosuvastatin Calcium [Crestor] 10 mg PO HS 06/26/17 [History] Brimonidine Tartrate 1 drop OP BID 07/05/17 [History] LORazepam [Ativan] 0.5 mg PO TID 07/05/17 [History] Ropinirole HCl [Requip] 2 mg PO BID 07/06/17 [History] Lisinopril [Zestril] 10 mg PO DAILY #30 07/08/17 [Rx] Metoprolol [Lopressor] 12.5 mg PO BID #30 07/08/17 [Rx] Allergies/Adverse Reactions: 3 Allergy/AdvReac Type Severity Reaction Status Date / Time Penicillins Allergy Rash Verified 06/26/17 18:17 Procedures/tests Complete & Pending: Procedures Performed prior 72 hours Category Date Time Status MR lumbar spine wo con [MR] Routine MRI 07/07/17 08:56 Completed Date of admission: 07/05/17 21:32 Primary care physician: Amee Campbell CNP Consults: 07/06/17 09:20 Consult to Occupational Therapy [CONS] Routine Comment: Evaluate, develop and implement POC Reason for Consult: weakness, lives alone, uses walker to get around Consult to Physical Therapy [CONS] Routine Comment: Evaluate, develop and implement POC Reason for Consult: lives alone, weakness, uses walker to get around 07/06/17 09:21 Consult to Seamer Operator [CONS] Routine Reason for SW Consult: discharge planning, may need ECF lives alone Discharging clinician: Gaby Gongora Anticipated date of discharge: 07/08/17 - Patient Status Disposition: Transfer Inpatient Rehab Fac Condition: Good Functional capacity at discharge: uses cane/walker Overall status at discharge: patient is progressing back to baseline - Discharge Instructions Follow Up With: Bishop Mckeon Jr, MD [Partnered Physician] - 08/10/17 8:30 am Amee Campbell CNP [Primary Care Provider] - Forms: ED Satisfaction Letter, Work/School Release - Diet and Activity Activity: as per physical therapy Diet: low fat, low cholesterol Interval History: Seen and examined at bedside, says she feels okay, uneventful night. Still with c/o lower back pain which is relieved with PRN pain medicine. No numbness or tingling Hospital course: See assessment and plan for hospital course - Time Spent with Patient Total time spent providing and/or coordinating discharge services: - Constitutional Vitals: Temp Pulse Resp BP Pulse Ox 98.0 F 89 17 108/62 98 07/08/17 11:22 07/08/17 11:22 07/08/17 11:22 07/08/17 11:22 07/08/17 11:22 General appearance: Present: A&O X 3, pleasant, no acute distress - Head Head exam: Present: atraumatic, normocephalic - Eye Eye exam: Present: PERRL, conjuntiva pink, sclera anicteric Pupils: Present: PERRL - Neck Neck exam general surgery: Present: supple, trachea midline. Absent: lymphadenopathy - Respiratory Respiratory exam: Present: CTAB. Absent: accessory muscle use, rales, rhonchi, wheezes - Cardiovascular Cardiovascular exam: Present: RRR, +S1, +S2. Absent: diastolic murmur, gallop, rubs, systolic murmur - GI/Abdominal GI/Abdominal exam: Present: normal bowel sounds, soft, no peritoneal signs. Absent: distended, tenderness - Additional comments: + srivastava catheter - Extremities Exam Extremities exam: Present: warm, radial pulses palpable and symmetrical. Absent : calf tenderness, cyanotic, pedal edema - Neurological Exam Neurological exam: Present: CN II-XII intact, oriented X3, no focal deficits. Absent: pronater drift, facial droop, speech deficit - Skin Skin exam: Present: dry, intact
--- NOTE | 2017-07-08 13:32 | Physician Discharge Referral ---
ExtendedCare Referral Info Transfer To: [facility] inpatient rehab Provider in Charge: Gaby Gongora CNP Provider in Charge after Transfer: PCP, Other Institutional Level of Care: Skilled - Diagnosis (1) Urinary retention with incomplete bladder emptying Status: Acute (2) Sacral insufficiency fracture Status: Acute (3) Acute exacerbation of chronic obstructive pulmonary disease (COPD) Status: Chronic (4) Essential hypertension Status: Acute - Transfer Medications Home Medications: Acetaminophen w/Cod 300-30 mg [Tylenol w/Codeine #3] 1 each PO Q8HR 06/26/17 [ History] Albuterol Sulfate [Ventolin Hfa] 2 puff IH Q4HR PRN 06/26/17 [History] Cyclobenzaprine [Flexeril] 10 mg PO BID 06/26/17 [History] Escitalopram [Lexapro] 10 mg PO DAILY 06/26/17 [History] Fluticasone/Salmeterol [Advair 250-50 Diskus] 1 each IH BID 06/26/17 [History] Guaifenesin [Mucinex] 600 mg PO BID 06/26/17 [History] Latanoprost [Xalatan] 1 drop OP HS 06/26/17 [History] Meloxicam [Mobic] 15 mg PO DAILY 06/26/17 [History] Pramipexole [Mirapex] 1 mg PO BID 06/26/17 [History] Ranitidine HCl [Acid Certified Nursing Assistant Instructor] 150 mg PO DAILY 06/26/17 [History] Rosuvastatin Calcium [Crestor] 10 mg PO HS 06/26/17 [History] Brimonidine Tartrate 1 drop OP BID 07/05/17 [History] LORazepam [Ativan] 0.5 mg PO TID 07/05/17 [History] Ropinirole HCl [Requip] 2 mg PO BID 07/06/17 [History] Lisinopril [Zestril] 10 mg PO DAILY #30 07/08/17 [Rx] Metoprolol [Lopressor] 12.5 mg PO BID #30 07/08/17 [Rx] Allergies/Adverse Reactions: 3 Allergy/AdvReac Type Severity Reaction Status Date / Time Penicillins Allergy Rash Verified 06/26/17 18:17 - Respiratory Orders None Smoking Cessation: Smoking cessation has been advised. For more information, call the [place] Tobacco Quit Line at 9-192-MDOU-NOW. - Advance Directives Code Status: Full Code - Mobility Orders Ambulate - Rehabiliation Orders Rehab Potential: Fair Rehab Orders: Evaluation for Physical Therapy, Evaluation for Occupational Therapy - Diet Orders Regular CERTIFICATION: I certify that the transfer of the above named patient to an Extended Care Facility is necessary for the continuing treatment of the diagnosis listed. The above information is true and accurate reflection of patient's current condition. Confidential - Redisclosure prohibited without a patient's written consent.
== END 2017-07-08 16:45 | DRG 191 ==
LOC: 3BNU 16:45 → EMEROO 16:45 → 3BNU 21:46
PROVIDERS: ADMIT Internal Medicine Hematology & Oncology; ATTEND Registered Nurse